=== PATIENT | male | born 1955 | race Caucasian/White ===

== ENCOUNTER 2018-07-30 07:59 | Day surgery (SDC) | payer MEDICARE ==
[~2018-07-30 07:59] MED LIST: ACETAMINOPHEN 1,000 MG/100 ML BTL IV ONE; CEFAZOLIN 2 Gram 2 GM/50 ML BAG IVPB ONE
[2018-07-30] MEDS ORDERED: PROPOFOL 10 MG/ML VIAL IV ONE (08:00)
[2018-07-30] MEDS ORDERED: FENTANYL PF 100MCG/2ML VIAL IV ONE (08:00)
[2018-07-30] MEDS ORDERED: METHYLPREDNISOLONE 40MG/VIAL IM ONE (08:00)
[2018-07-30] MEDS ORDERED: SEVOFLURANE 250 ML INH ONE (08:00)
[2018-07-30] MEDS ORDERED: MIDAZOLAM HCL 2MG/2ML VIAL IV ONE ×2 (08:00)
[2018-07-30] MEDS ORDERED: KETOROLAC 30 MG/ML VIAL IVP ONE (08:00)
[2018-07-30] MEDS ORDERED: DEXAMETHASONE 4 MG/ML 1ML VIAL IVP ONE (08:00)
[2018-07-30] MEDS ORDERED: BUPIVACAINE 0.5% W/EPI MPF 30 ML VIAL IVP ONE (08:00)
[2018-07-30] MEDS ORDERED: ONDANSETRON HCL IV 4 MG/2 ML VIAL IVP ONE (08:00)
[2018-07-30] MEDS ORDERED: LIDOCAINE 2% MDV (20MG/ML) 20ML VIAL IV ONE (08:00)
[2018-07-30 08:13] LABS: BASO % 0.5 % (0-6); EOS % 2.9 % (0-6); GRAN % 56.7 % (47-80); HEMATOCRIT 46.1 % (42.0-52.0); HEMOGLOBIN 15.4 gm/dl (14.0-18.0); LYMPH % 29.5 % (16-45); MEAN CELL VOLUME 95.1 fl (81-97); MEAN CORPUSCULAR HEMOGLOBIN 31.8 pg (27-33); MEAN CORPUSCULAR HGB CONC 33.4 g/dl (32-36); MEAN PLATELET VOLUME 8.7 fl (7.4-10.4); MONO % 10.4 % (0-9); PLATELET COUNT 258 K/uL (130-400); RED BLOOD COUNT 4.85 M/uL (4.40-5.70); RED CELL DISTRIBUTION WIDTH 14.1 % (11.5-14.5); WHITE BLOOD COUNT W/O DIFF 6.5 K/uL (4.2-12.2)
[2018-07-30 08:41] LABS: BLOOD UREA NITROGEN 21 mg/dL (8-23); CREATININE 1.1 mg/dL (0.7-1.2); EST GLOMERULAR FILTRATION RATE > 60 mL/min; GLUCOSE,RANDOM 121 mg/dL (74-109)
--- NOTE | 2018-08-16 22:28 | Operative Note ---
DATE OF SURGERY: 07/30/2018. PREOPERATIVE DIAGNOSES: 1. RIGHT KNEE ARTHROSIS. 2. MEDIAL MENISCAL TEAR. POSTOPERATIVE DIAGNOSES: 1. RIGHT KNEE ARTHROSIS. 2. MEDIAL MENISCAL TEAR. PROCEDURES: 1. DIAGNOSTIC ARTHROSCOPY. 2. ARTHROSCOPIC CHONDROPLASTY OF THE TROCHLEA. 3. ARTHROSCOPIC PARTIAL MIDDLE AND POSTERIOR HORN MEDIAL MENISCECTOMY. SURGEON: TULIO ADAMS M.D. ANESTHESIA: LMA. COMPLICATIONS: NONE. BLOOD LOSS: MINIMAL. 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 INDICATIONS FOR OPERATION: This is a 63-year-old male who has had persistent pain in dysfunction in his knee for several months. He failed nonoperative treatment including anti-inflammatories and injection and is scheduled for a knee arthroscopy. I explained all the risks and benefits thoroughly in detail for the diagnoses and procedures including but not limited to infection, nerve injury, vessel injury, persistent pain, stiffness, numbness and tingling in his knee, the fact that he has arthrosis of the knee and that this procedure would not cure this condition and he could require further procedures, such as even knee replacement and all of his questions were answered. Rehab and course were outlined and he agreed to proceed. PROCEDURE: The patient brought to O.R. and placed in the supine position for proper surgery. General endotracheal anesthesia was induced and his right lower extremity and knee were prepped and draped in the usual sterile fashion. His right knee was prepped again with ChloraPrep after it was draped. Intraoperative time out was performed. Next, a standard superior lateral inflow port was established. Inferior medial and lateral ports were established and diagnostic arthroscopy performed. The suprapatellar pouch was normal. The medial gutter was normal. The medial compartment revealed a complex tear of the entire posterior and middle horns of the medial meniscus. We used a combination of basket biter and shaver and smoothed that back about 50 to 60% to a stable surface. The remainder of the meniscus was intact. The cartilage here was grade 1 chondromalacia only. The intercondylar notch was normal. The ACL and PCL were intact. The patellofemoral compartment revealed a grade 4 lesion of the femoral trochlea with some loose flaps in the periphery. This was debrided with a shaver to a smooth stable surface. The patella was a grade 1 only, mild. The lateral compartment was normal. The meniscus cartilage was normal. Lateral gutter normal. This completed our procedures. The scope and equipment were removed. The scope incisions were covered with Steri-Strips. The knee was bolused with 0.5% Marcaine with Epinephrine and Exparel. Sterile dressing applied. CHAPIN wrap. The patient tolerated the procedures well. No intraoperative complications. All sponge, needle, and blade counts were correct. He was sent to Recovery in stable condition, neurovascularly intact. He will be discharged as an outpatient and have [facility] Nurse and he will follow-up in two weeks. cc: Dr. Erik Holm JOB NUMBER: [id number] MTDD
== END 2018-07-30 12:15 | disposition home or self-care (01) ==
LOC: SUR 07:59
PROVIDERS: ATTEND Orthopaedic Surgery
DX: S83.241A Other tear of medial meniscus, current injury, right knee, initial encounter (principal); I10 Essential (primary) hypertension; J45.909 Unspecified asthma, uncomplicated; G47.30 Sleep apnea, unspecified; M17.11 Unilateral primary osteoarthritis, right knee
CPT/HCPCS: 85025; 80048; 29881; 01400; J1885; J2405; J3010; J0690; J1030